=== PATIENT | female | born 1965 | race Native Hawaiian/Other Pacific Islander ===

== ENCOUNTER 2020-06-21 10:29 | Outpatient (CLI) | payer BC, OTHER | END 2020-06-21 23:59 | disposition home or self-care (01) | LOC: INF 10:29 | PROVIDERS: ATTEND Internal Medicine | DX: Z23 Encounter for immunization (principal) | CPT/HCPCS: 96372 ==

== ENCOUNTER 2020-07-19 09:44 | Outpatient (CLI) | payer BC, OTHER | END 2020-07-19 21:43 | disposition home or self-care (01) | LOC: INF 09:44 | PROVIDERS: ATTEND Internal Medicine | DX: Z23 Encounter for immunization (principal) | CPT/HCPCS: 96372 ==